=== PATIENT | male | born 1945 | race Caucasian/White ===

== ENCOUNTER 2024-08-13 03:17 | Inpatient (IN) ==
[2024-08-13 03:44] LABS: ABS Lymphocytes 0.9 10^3/uL (1.0-4.8); ABS Monocytes 0.8 10^3/uL (0.0-1.1); ABS Neutrophils 15.3 10^3/uL (1.5-7.6); ABS Nucleated RBC 0.01 10^3/ul; Eosinophil % 0.1 %; Hematocrit 19.9 % (38-53); Hemoglobin 6.5 g/dL (13.2-16.3); Lymphocyte % 5.3 %; Mean Corpuscular Hemoglobin 26.1 pg (27-33); Mean Corpuscular Hgb Conc 32.9 g/dL (31-36); Mean Corpuscular Volume 79.2 fL (80-97); Mean Platelet Volume 7.1 fL (7.5-11.2); Platelet Count 194 10^3/uL (150-450); Red Blood Count 2.51 10^6/uL (4.06-5.63); Red Cell Distribution Width 19.6 % (12-17); White Blood Count 17.1 10^3/uL (3.6-10.2)
[2024-08-13 04:11] LABS: Albumin 1.8 g/dL (3.2-5.2); Albumin/Globulin Ratio 0.6 (1-3); C Reactive Protein 119.23 mg/L (<8.01); Creatinine, Serum 1.9 mg/dL (0.67-1.17); Globulin 3.1 g/dL (2-4); Magnesium 1.8 mg/dL (1.9-2.7); Potassium 4.7 mmol/L (3.5-5.0); Total Protein 4.9 g/dL (6.4-8.9); eGFR CKD-EPI 35.7 (>60)
[2024-08-13] MEDS: Cefepime 2 GM in Dextrose 2 GM/50 ML BAG IV ONE (04:28)
[2024-08-13 04:52] LABS: Activated Partial Thrombo Time 35.4 seconds (26.0-38.0); INR 1.81 (0.85-1.14)
[2024-08-13] MEDS: Vancomycin 1,750 MG in NS 0.9% 500 ml BAG 500 ML IVPB ONE (04:55)
[2024-08-13] MEDS: NS 0.9% 500 ml BAG 500 ML IV ONE (04:55)
[2024-08-13] MEDS ORDERED: Vancomycin 1,750 MG in NS 0.9% 250 ml 250 ML IVPB SCH (05:00)
[2024-08-13 05:15] LABS: High Sensitivity Troponin 1 Hr 30 pg/mL (<20)
[2024-08-13] MEDS ORDERED: Calcium Gluconate 1 GM/10 ML VIAL (in Pyxis) IV PUSH ONE (06:34)
[2024-08-13 07:11] LABS: Urine Appearance Clear; Urine Bilirubin Negative (Negative); Urine Blood Trace (Negative); Urine Color Yellow; Urine Glucose Negative (Negative); Urine Ketones Negative (Negative); Urine Nitrite Negative (Negative); Urine Protein Trace (Negative); Urine Specific Gravity 1.015 (1.002-1.030); Urine Urobilinogen Negative (Negative); Urine pH 5.5 (5.0-8.0)
[2024-08-13] MEDS: CALCIUM GLUCONATE 1GM/50ML NS BAG IV ONE (07:27)
[2024-08-13 07:28] LABS: Urine Bacteria Absent /HPF (Absent); Urine Red Blood Cell Trace(0-2/hpf) /HPF (0-Trace); Urine White Blood Cell 3+(>20/hpf) /HPF (0-Trace)
[2024-08-13 08:27] LABS: Body Fluid Total Nucleated 196 /mcL
[2024-08-13 08:28] LABS: Body Fluid Source Peritonial Fluid
[2024-08-13 08:29] LABS: Body Fluid Appearance Cloudy; Body Fluid Color Yellow
[2024-08-13] MEDS: Magnesium Sulfate 2 gm BAG 2 GM/50 ML BAG IVPB ONE (09:12)
[2024-08-13] MEDS: Lactulose 30 ml UDC PO SCH (09:13)
[2024-08-13 09:47] LABS: Body Fluid Band 1 %; Body Fluid Mono 78 %; Body Fluid Other Cells 1; Body Fluid Total Cells Counted 200
[2024-08-13 10:11] LABS: Osmolality Serum 283 mOsm/kg (275-295)
[2024-08-13] MEDS: Octreotide Acetate 50 MCG in NS 0.9% 50 ML 50 ML IV ONE (10:32)
[2024-08-13] MEDS: Pantoprazole VIAL 40 MG VIAL IV SCH (10:32)
[2024-08-13] MEDS: Octreotide Acetate 500 MCG in NS 0.9% 100 ml BAG 100 ML IV SCH (11:54)
[2024-08-13] MEDS: cefTRIAXone 2 gm/50 mL D5W 2 GM/50 ML BAG IV SCH ×2 (13:25→13:41)
[2024-08-13] MEDS: metroNIDAZOLE IV 500 MG/100ML 500 MG/100 ML BAG IVPB SCH (16:24)
[2024-08-13 16:47] LABS: ABS Basophils 0.1 10^3/uL (0.0-0.1); ABS Eosinophils 0.2 10^3/uL (0.0-0.5); ABS Lymphocytes 1.1 10^3/uL (1.0-4.8); ABS Monocytes 0.6 10^3/uL (0.0-1.1); ABS Neutrophils 8.9 10^3/uL (1.5-7.6); Hemoglobin 7.1 g/dL (13.2-16.3); Lymphocyte % 10.5 %; Mean Corpuscular Hemoglobin 26.9 pg (27-33); Mean Corpuscular Hgb Conc 33.6 g/dL (31-36); Mean Platelet Volume 7.5 fL (7.5-11.2); Platelet Count 178 10^3/uL (150-450); Red Blood Count 2.62 10^6/uL (4.06-5.63); Red Cell Distribution Width 19.8 % (12-17); White Blood Count 10.9 10^3/uL (3.6-10.2)
[2024-08-13 17:25] LABS: Calcium 7.4 mg/dL (8.6-10.3); Creatinine, Serum 2.04 mg/dL (0.67-1.17); Potassium 4.8 mmol/L (3.5-5.0); eGFR CKD-EPI 32.7 (>60)
[2024-08-14] MEDS: metroNIDAZOLE IV 500 MG/100ML 500 MG/100 ML BAG IVPB SCH (00:22)
[2024-08-14 06:32] LABS: ABS Basophils 0.1 10^3/uL (0.0-0.1); ABS Eosinophils 0.4 10^3/uL (0.0-0.5); ABS Lymphocytes 0.8 10^3/uL (1.0-4.8); ABS Monocytes 0.5 10^3/uL (0.0-1.1); Eosinophil % 4.7 %; Hematocrit 24.5 % (38-53); Lymphocyte % 10.1 %; Mean Corpuscular Hemoglobin 26.8 pg (27-33); Mean Corpuscular Hgb Conc 32.7 g/dL (31-36); Mean Corpuscular Volume 82.2 fL (80-97); Mean Platelet Volume 7.5 fL (7.5-11.2); Platelet Count 169 10^3/uL (150-450); Red Blood Count 2.98 10^6/uL (4.06-5.63); Red Cell Distribution Width 19.2 % (12-17); White Blood Count 7.7 10^3/uL (3.6-10.2)
[2024-08-14 07:42] LABS: Albumin 1.7 g/dL (3.2-5.2); Albumin/Globulin Ratio 0.6 (1-3); Calcium 7.3 mg/dL (8.6-10.3); Creatinine, Serum 1.81 mg/dL (0.67-1.17); Potassium 4.5 mmol/L (3.5-5.0); Total Bilirubin 1.1 mg/dL (0.2-1.0); Total Protein 4.7 g/dL (6.4-8.9); eGFR CKD-EPI 37.8 (>60)
[2024-08-14] MEDS: Digoxin IV 0.5 MG/2 ML AMP (0.25 MG/ML) IV SLOW PU ONE (09:27)
[2024-08-14] MEDS: NS 0.9% 500 ml BAG 500 ML IV ONE (09:32)
[2024-08-14] MEDS: Albumin Human 25% 25 GM/100 ML BTL IV SCH ×2 (09:52→10:11)
[2024-08-14] MEDS: Calcium Gluconate 1 GM/10 ML VIAL (in Pyxis) IV PUSH ONE (09:59)
[2024-08-14] MEDS: Ondansetron 4 mg VIAL 2 MG/ML 2 ml VIAL IV ONE (10:28)
[2024-08-14 10:45] LABS: TSH Ultra Thyroid Stim Horm 1.08 mcIU/mL (0.34-5.60)
[2024-08-14] MEDS: Cefepime 2 GM in Dextrose 2 GM/50 ML BAG IV SCH (12:01)
[2024-08-14 12:05] LABS: Lactate Dehydrogenase, BF 55 U/L
[2024-08-14 15:21] LABS: ABS Eosinophils 0.2 10^3/uL (0.0-0.5); ABS Lymphocytes 0.6 10^3/uL (1.0-4.8); ABS Monocytes 0.5 10^3/uL (0.0-1.1); ABS Neutrophils 5.4 10^3/uL (1.5-7.6); Eosinophil % 2.3 %; Hematocrit 22.4 % (38-53); Hemoglobin 7.4 g/dL (13.2-16.3); Lymphocyte % 9.1 %; Mean Corpuscular Hemoglobin 26.8 pg (27-33); Mean Corpuscular Hgb Conc 33.1 g/dL (31-36); Mean Corpuscular Volume 81.1 fL (80-97); Mean Platelet Volume 7.4 fL (7.5-11.2); Nucleated Red Blood Cells % 0.1 %/100WBC (0.0-0.8); Platelet Count 146 10^3/uL (150-450); Red Blood Count 2.76 10^6/uL (4.06-5.63); White Blood Count 6.6 10^3/uL (3.6-10.2)
[2024-08-14] MEDS: Polyethylene Glycol 3350 17 GM PACKET PO SCH (15:23)
[2024-08-14 15:57] LABS: ALT 29 U/L (7-52); AST 34 U/L (13-39); Albumin 2.3 g/dL (3.2-5.2); Albumin/Globulin Ratio 0.9 (1-3); Alkaline Phosphatase 91 U/L (35-149); Anion Gap 5 mmol/L (2-16); Blood Urea Nitrogen 34 mg/dL (6-24); CO2 Carbon Dioxide 21 mmol/L (22-32); Calcium 7.4 mg/dL (8.6-10.3); Chloride 106 mmol/L (101-111); Creatinine, Serum 1.61 mg/dL (0.67-1.17); Globulin 2.6 g/dL (2-4); Glucose 150 mg/dL (70-100); Magnesium 1.9 mg/dL (1.9-2.7); Phosphorus 3.3 mg/dL (2.5-5.0); Potassium 4.5 mmol/L (3.5-5.0); Sodium 132 mmol/L (135-145); Total Bilirubin 1.1 mg/dL (0.2-1.0); Total Protein 4.9 g/dL (6.4-8.9); eGFR CKD-EPI 43.5 (>60)
[2024-08-14 19:03] LABS: % Iron Saturation 10 % (15-55); .Transferrin 163 mg/dL (203-362); Iron 22 ug/dL (50-212); Total Iron Binding Capacity 228 mcg/dL (250-450); Unsaturated Iron Binding 206 ug/dL
[2024-08-14 19:25] LABS: Ferritin 59.2 ng/mL (24-336)
[2024-08-14 19:29] LABS: Folate > 20.00 ng/mL (5.90-24.80)
[2024-08-14 19:30] LABS: Vitamin B12 1038 pg/mL (180-914)
[2024-08-15 06:09] LABS: ABS Eosinophils 0.4 10^3/uL (0.0-0.5); ABS Lymphocytes 1.1 10^3/uL (1.0-4.8); ABS Monocytes 0.5 10^3/uL (0.0-1.1); ABS Neutrophils 4.5 10^3/uL (1.5-7.6); Eosinophil % 6.1 %; Hematocrit 24.3 % (38-53); Hemoglobin 8.3 g/dL (13.2-16.3); Lymphocyte % 16.4 %; Mean Corpuscular Hemoglobin 27.6 pg (27-33); Mean Platelet Volume 7.2 fL (7.5-11.2); Platelet Count 152 10^3/uL (150-450); White Blood Count 6.5 10^3/uL (3.6-10.2)
[2024-08-15 06:38] LABS: Albumin 2.1 g/dL (3.2-5.2); Albumin/Globulin Ratio 0.8 (1-3); Calcium 7.3 mg/dL (8.6-10.3); Creatinine, Serum 1.43 mg/dL (0.67-1.17); Globulin 2.5 g/dL (2-4); Magnesium 1.9 mg/dL (1.9-2.7); Phosphorus 2.5 mg/dL (2.5-5.0); Potassium 4.3 mmol/L (3.5-5.0); Total Bilirubin 1.3 mg/dL (0.2-1.0); Total Protein 4.6 g/dL (6.4-8.9); eGFR CKD-EPI 50.2 (>60)
[2024-08-15] MEDS: Magnesium Sulfate 2 gm BAG 2 GM/50 ML BAG IVPB ONE (08:19)
[2024-08-15] MEDS: Furosemide 20 mg/2 ml IV VIAL IV SLOW PU SCH (10:37)
[2024-08-15 10:54] LABS: Albumin, BF 0.5 g/dL; Fluid Type, Albumin Peritoneal Fluid; Fluid Type, Protein, Total Peritoneal Fluid; Glucose, BF 127 mg/dL; Total Protein, BF 0.9 g/dL
[2024-08-15] MEDS: Ferric Gluconate IV 250 MG in NS 0.9% 250 ml 200 ML IVPB SCH (11:43)
[2024-08-15] MEDS: Albumin Human 25% 25 GM/100 ML BTL IV SCH (15:02)
[2024-08-16 07:34] LABS: ABS Basophils 0.1 10^3/uL (0.0-0.1); ABS Eosinophils 0.5 10^3/uL (0.0-0.5); ABS Lymphocytes 0.8 10^3/uL (1.0-4.8); ABS Monocytes 0.6 10^3/uL (0.0-1.1); ABS Neutrophils 4.3 10^3/uL (1.5-7.6); ABS Nucleated RBC 0.01 10^3/ul; Eosinophil % 8.5 %; Hematocrit 23.8 % (38-53); Lymphocyte % 13.3 %; Mean Corpuscular Hemoglobin 27.9 pg (27-33); Mean Corpuscular Hgb Conc 33.4 g/dL (31-36); Mean Corpuscular Volume 83.4 fL (80-97); Mean Platelet Volume 7.3 fL (7.5-11.2); Nucleated Red Blood Cells % 0.1 %/100WBC (0.0-0.8); Platelet Count 154 10^3/uL (150-450); Red Blood Count 2.85 10^6/uL (4.06-5.63); Red Cell Distribution Width 18.9 % (12-17); White Blood Count 6.3 10^3/uL (3.6-10.2)
[2024-08-16 07:59] LABS: Albumin 2.7 g/dL (3.2-5.2); Albumin/Globulin Ratio 1.3 (1-3); Calcium 7.4 mg/dL (8.6-10.3); Creatinine, Serum 1.5 mg/dL (0.67-1.17); Globulin 2.1 g/dL (2-4); Total Protein 4.8 g/dL (6.4-8.9); eGFR CKD-EPI 47.4 (>60)
[2024-08-16] MEDS ORDERED: Ondansetron ODT 4 mg TAB 4 MG TAB SL PRN (11:06)
[2024-08-17] MEDS: Nitrofurantoin (monohydrate/macrocrystals) 100 mg CAP PO SCH (10:57)
[2024-08-19] MEDS: ceFAZolin 1 GM ADVAN 1 GM ADDV.VIAL IVPB ONE (15:55)
[2024-08-19] MEDS: fentaNYL 250 mcg/5 ml 50 MCG/ML 5 ml VIAL (250 MCG) ONE (15:55)
[2024-08-19] MEDS: Lidocaine PATCH 5% PATCH TRANSDERM SCH (16:19)
[2024-08-25] MEDS: Lactulose 30 ml UDC PO SCH (17:54)
[2024-08-25] MEDS: Lactulose 30 ml UDC ONE (18:18)
[2024-08-28 08:10] VITALS: BP 112/54
== END 2024-08-28 09:40 | disposition hospice, home (50) | DRG 720 ==
LOC: EDHOLD 03:17 → ED 03:17 → SUATTDRO 08:10 → MED 18:30 → SUATTDRO 08-14 15:04
PROVIDERS: ADMIT Internal Medicine; ATTEND Internal Medicine